=== PATIENT | male | born 1975 | race Hispanic/Latino ===

== ENCOUNTER 2021-03-11 10:35 | Emergency (ER) | payer OTHER, SELFPAY ==
[2021-03-11] VITALS (12 sets, daily range): BP systolic 123–200; BP diastolic 65–100; PULSE 62–103; RESP 14–30; TEMP 36.2; O2SAT 95–99; BMI 37.1
--- NOTE | 2021-03-11 10:42 | DI.RAD.S_ITS ---
PROCEDURE: XR TIBIA FIBULA LT 2V INDICATIONS: trauma TECHNIQUE: 2 views of the tibia and fibula were acquired. COMPARISON: None. FINDINGS: Bones: There are moderately displaced comminuted fractures of the distal tibia and fibula. There is moderate lateral angulation of the distal tibial and fibular fragments. There is a mildly displaced fibular neck fracture. Soft tissues: No suspicious soft tissue calcifications or masses. IMPRESSION: 1. Tibial and fibular fractures as above. Dictated by: Soheila Brito M.D. on 03/11/2021 at 10:58 Approved by: Soheila Brito M.D. on 03/11/2021 at 10:58
--- NOTE | 2021-03-11 10:44 | RT ---
Responded to MOD Trauma. Airway patent. Pt awake and oriented with RA Sat 98%. No intervention necessary at this time.
[2021-03-11] MEDS: HYDROMORPHONE 0.5 MG INJ IV ×2 (11:00→11:22)
--- NOTE | 2021-03-11 11:01 | ED_ITS ---
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 No loss of consciousness. Only complaint is pain in the left lower extremity. Related Data Allergies Allergy/AdvReac Type Severity Reaction Status Date / Time No Known Drug Allergies Allergy Verified 03/11/21 11:12 Review of Systems Review of Systems Narrative: Pertinent positive and negative findings as per HPI Remainder of review of systems is otherwise unremarkable for Constitutional: Fevers, chills, weakness ENT: No sore throat, neck pain, ear pain CV: Chest pain, palpitations, Respiratory: Cough, wheeze, dyspnea GI: Nausea, vomiting, diarrhea, : Dysuria, hematuria, Exam Narrative Exam Narrative: General: Healthy appearing, in no acute distress. Able to give a complete and coherent history. Well-nourished well-developed HEENT: Moist mucous membranes, normal sclera with reactive pupils, Neck: No midline cervical tenderness, supple Respiratory: Lungs are clear to auscultation, no wheezing no rales no rhonchi. Full and symmetrical air movement Cardiac: Regular rate and rhythm no murmurs no bruits Chest: No tenderness to palpation of thoracic spine or rib cage. Abdomen: Soft, nontender, good bowel tones, no flank pain Spine/pelvis: No tenderness to palpation of lumbar spine or pelvic ring. Skin: Warm and dry, no rashes Neurologic: Grossly neurologically intact with no obvious asymmetries or abnormalities. Does have sensation to the affected left toes. Extremities: Open distal tib-fib fracture approximately 3 cm proximal to the ankle joint itself. Bleeding is controlled. Neurovascularly intact distally. Does not appear to have knee, proximal tib-fib or femur injuries. No other extremity injuries are appreciated on initial exam Psych: Cooperative, appropriate insight and affect Initial Vital Signs Initial Vital Signs: Vital Signs Temperature 97.2 F L 03/11/21 10:55 Pulse Rate 86 03/11/21 10:55 Respiratory Rate 21 03/11/21 10:55 Blood Pressure 143/83 H 03/11/21 10:55 Pulse Oximetry 99 03/11/21 10:55 Procedures Orthopedic Splinting/Casting Open left lower extremity fracture: Time of procedure: 12:12 Side: left Lower Extremity Injury Location: lower leg Lower Extremity Immobilizer: posterior splint and stirrup splint Post splinting neuro exam: intact Post splinting vascular exam: intact (Splint left with open spaces to confirm pulses) Procedural Sedation Time of procedure: 12:04 Consent signed: Yes Time out performed: Yes Indication: fracture/dislocation reduction Time of Last PO Intake: 18:00 Preparation: cut off [place]ingle [employer] applied, pulse oximeter, supplemental O2 applied, suction/airway equipment at bedside and IV secured Ketamine: IV Ketamine dose (mg): 300 Intraservice time/total sedation time (min): 16 ED Sedation Level: Moderate (Concious) Patient Tolerated Procedure: Well Course Orders Ordered: ED Orders 03/11/21 10:42 XR tibia fibula LT 2V Stat 03/11/21 10:43 Complete Blood Count AUTO DIFF Stat Comprehensive Metabolic Panel Stat 03/11/21 11:09 COVID19 - ADMIT (COMPUTER HELP DESK REPRESENTATIVE swab/PCR) Stat 03/11/21 12:22 XR tibia fibula LT 2V Stat Discontinued Medications Cefazolin Sodium/Dextrose (Cefazolin 2 Gm/20 Ml Syringe) 2 gm IV NOW ONE Stop: 03/11/21 11:09 Last Admin: 03/11/21 11:18 Dose: 2 gm Documented by: MELL Diphtheria/Tetanus/Acell Pertussis (Tet,Diph,Pertuss(Acell),Vac/Pf 0.5 Ml Syringe) 0.5 ml IM .ONCE ONE Stop: 03/11/21 11:09 Last Admin: 03/11/21 11:17 Dose: 0.5 ml Documented by: MELL Hydromorphone HCl (Hydromorphone 0.5 Mg Inj) 0.5 mg IV Q15MIN PRN PRN Reason: Pain, Last Admin: 03/11/21 11:22 Dose: 0.5 mg Documented by: Admin: 03/11/21 11:00 Dose: 0.5 mg Documented by: MELL Sodium Chloride (Normal Saline 0.9%) 1,000 mls @ 150 mls/hr IV CONT ELIZABETH Last Infusion: 03/11/21 12:24 Dose: 150 mls/hr Documented by: Infusion: 03/11/21 11:54 Dose: 999 mls/hr Documented by: Admin: 03/11/21 11:18 Dose: 150 mls/hr Documented by: MELL Ketamine HCl (Ketamine 500 Mg/5 Ml Inj) 300 mg IV NOW ONE Stop: 03/11/21 11:31 Last Admin: 03/11/21 11:54 Dose: 300 mg Documented by: MELL Ondansetron HCl (Ondansetron 4 Mg/2 Ml Inj) 4 mg IV NOW ONE Stop: 03/11/21 11:01 Last Admin: 03/11/21 11:14 Dose: 4 mg Documented by: MELL Vital Signs Vital signs: Vital Signs - 8 hr 03/11/21 10:55 03/11/21 11:01 03/11/21 11:15 Temperature 97.2 F L Pulse Rate 86 66 88 Respiratory Rate 21 21 23 Blood Pressure 143/83 H 153/86 H Pulse Oximetry 99 96 98 03/11/21 11:23 03/11/21 11:30 03/11/21 11:45 Temperature Pulse Rate 63 62 76 Respiratory Rate 16 20 19 Blood Pressure 135/79 136/78 123/65 Pulse Oximetry 99 99 98 03/11/21 12:00 03/11/21 12:08 03/11/21 12:15 Temperature Pulse Rate 103 H 95 H 82 Respiratory Rate 30 H 19 21 Blood Pressure 200/100 H 183/86 H 166/88 H Pulse Oximetry 99 96 96 03/11/21 12:30 03/11/21 12:38 03/11/21 12:45 Temperature Pulse Rate 84 88 80 Respiratory Rate 18 20 14 Blood Pressure 150/77 H 129/69 Pulse Oximetry 98 96 Medical Decision Making Lab Data Result diagrams: 03/11/21 10:43 03/11/21 10:43 Labs: Lab Results 03/11/21 03/11/21 03/11/21 Range/Units 10:43 10:43 11:09 WBC 7.4 (4.5-11.0) X10^3/uL RBC 4.91 (4.5-5.9) X10^6/uL Hgb 14.2 (13.5-17.5) g/dL Hct 42.0 (41-53) % MCV 85.5 (80-100) fL MCH 28.9 (26-34) PG MCHC 33.8 (30-36) % RDW 12.8 (11.6-14.8) % Plt Count 300 (150-400) X10^3/uL Neut % (Auto) 45.2 L (50-75) % Lymph % (Auto) 44.5 H (25-40) % Luna % (Auto) 7.1 (3-14) % Eos % (Auto) 2.5 (2-4) % Baso % (Auto) 0.7 (0-2) % Neut # (Auto) 3300 (1627-4124) /uL Lymph # (Auto) 3300 (6412-3162) /uL Luna # (Auto) 500 (0-900) /uL Eos # (Auto) 200 (0-450) /uL Baso # (Auto) 0 (0-100) /uL Sodium 141 (137-145) mmol/L Potassium 3.6 (3.4-5.1) mmol/L Chloride 105 (98-107) mmol/L Carbon Dioxide 28 (22-32) mmol/L BUN 16 (9-20) mg/dL Creatinine 0.92 (0.66-1.25) mg/dL Estimated GFR > 60.0 (>60) mL/min BUN/Creatinine Ratio 17.4 (6-22) Glucose 127 H (70-100) mg/dL Calcium 9.1 (8.4-10.2) mg/dL Total Bilirubin 0.4 (0.2-1.3) mg/dL AST 32 (17-59) IU/L ALT 42 (<50) IU/L Alkaline Phosphatase 75 (38-126) U/L Total Protein 7.5 (6.3-8.2) g/dL Albumin 4.6 (3.5-5.0) g/dL Globulin 2.9 (1.7-4.1) g/dL Albumin/Globulin Ratio 1.6 (1.0-2.8) SARS-CoV-2 (PCR) Negative (Negative) Imaging Data Tib-fib: Radiologist's Impression: FINDINGS:? ? Bones:? There are moderately displaced comminuted fractures of the distal tibia and fibula.? There is moderate lateral angulation of the distal tibial and fibular fragments. ?There is a mildly displaced fibular neck fracture. ? Soft tissues:? No suspicious soft tissue calcifications or masses.? ? IMPRESSION:? 1. Tibial and fibular fractures as above.? ? ? Dictated by: Soheila Brito M.D. on 03/11/2021 at 10:58? ?? MDM Narrative Medical decision making narrative: Otherwise healthy 46-year-old gentleman with high energy fracture falling 60 landing on both heels with open fracture distal tib-fib angulated, comminuted with mildly displaced fibular neck fracture as well. Care is reviewed with our orthopedic surgeon who has reviewed the films and reviewed with his partner who focuses on lower extremity injuries. Both recommend transfer to [facility] for higher level of care given the high impact mechanism of injury an anticipated multiple surgical interventions that will be required. Last meal was dinner last night. 1200 [facility] transfer center. Meets criterion for immediate transfer accept for trauma. Dr Miranda, ER doctor, accepting The open comminuted slightly angulated fracture is reduced, rinsed copiously with saline as the skin is brought back out over the bone. Splint is placed w ith spaces left to confirm continued excellent dorsalis pedis and posterior tibialis pulses. Patient tolerated the sedation and procedure well. ALS transport given his sedation, trauma and probable need for pain control is arranged. Critical Care Time Critical Care Time Critical Care Time: Yes Total Critical Care Time: 31 Attestation: Critical care time is separate from other billable procedures. There is a high probability of a significant, sudden or life-threatening deterioration that requires my full and direct attention, intervention and personal management. This critical care time includes consultation with family and other consulting doctors, review of records, and interpretation of data from labs, EKGs and imaging as well as managements of acute trauma and open fractures. Discharge Plan Departure Patient Disposition: [facility] Clinical Impression: Open fracture of distal end of fibula and tibia Qualifiers: Encounter type: initial encounter Open fracture type: open type III Laterality: right Qualified Code(s): S82.831C - Other fracture of upper and lower end of right fibula, initial encounter for open fracture type IIIA, IIIB, or IIIC Closed fracture of proximal end of fibula Qualifiers: Encounter type: initial encounter Fracture morphology: unspecified fracture morphology Laterality: left Qualified Code(s): S82.832A - Other fracture of upper and lower end of left fibula, initial encounter for closed fracture Fall on and from ladder causing accidental injury Qualifiers: Encounter type: initial encounter Qualified Code(s): W11.XXXA - Fall on and from ladder, initial encounter
[2021-03-11 11:08] LABS: Add Manual Diff / Slide Review NO; Basophils Absolute Auto 0 /uL (0-100); Basophils Percent Auto 0.7 % (0-2); Eosinophils Absolute Auto 200 /uL (0-450); Eosinophils Percent Auto 2.5 % (2-4); Hemoglobin 14.2 g/dL (13.5-17.5); Lymphocytes Absolute Auto 3300 /uL (1100-4500); Lymphocytes Percent Auto 44.5 % (25-40); Mean Corpuscular HGB Conc 33.8 % (30-36); Mean Corpuscular Hemoglobin 28.9 PG (26-34); Mean Corpuscular Volume 85.5 fL (80-100); Monocytes Absolute Auto 500 /uL (0-900); Monocytes Percent Auto 7.1 % (3-14); Neutrophils Absolute Auto 3300 /uL (1500-7000); Neutrophils Percent Auto 45.2 % (50-75); Platelet Count 300 X10^3/uL (150-400); Red Blood Cell Count 4.91 X10^6/uL (4.5-5.9); Red Cell Distribution Width 12.8 % (11.6-14.8); White Blood Cell Count 7.4 X10^3/uL (4.5-11.0)
--- NOTE | 2021-03-11 11:13 | PC.NURSE ---
See trauma flowsheet for trauma documentation
[2021-03-11] MEDS: ONDANSETRON 4 MG/2 ML INJ IV (11:14)
[2021-03-11 11:16] LABS: Alanine Aminotransferase 42 IU/L (<50); Albumin 4.6 g/dL (3.5-5.0); Albumin Globulin Ratio 1.6 (1.0-2.8); Alkaline Phosphatase 75 U/L (38-126); Aspartate Aminotransferase 32 IU/L (17-59); BUN Creatinine Ratio 17.4 (6-22); Bilirubin Total 0.4 mg/dL (0.2-1.3); Blood Urea Nitrogen 16 mg/dL (9-20); Calcium 9.1 mg/dL (8.4-10.2); Carbon Dioxide 28 mmol/L (22-32); Chloride 105 mmol/L (98-107); Estimated Glomerular Filt Rate > 60.0 mL/min (>60); Globulin 2.9 g/dL (1.7-4.1); Glucose 127 mg/dL (70-100); HEMOLYSIS < 15 (0-50); Potassium 3.6 mmol/L (3.4-5.1); Sodium 141 mmol/L (137-145); Total Protein 7.5 g/dL (6.3-8.2)
[2021-03-11] MEDS: TET,DIPH,PERTUSS(ACELL),VAC/PF 0.5 ML SYRINGE IM (11:17)
[2021-03-11] MEDS: SODIUM CHLORIDE 0.9% 1,000 ML 150 ML IV (11:18)
[2021-03-11] MEDS: CEFAZOLIN 2 GM/20 ML SYRINGE IV (11:18)
[2021-03-11] MEDS: KETAMINE 500 MG/5 ML INJ 300 MG IV (11:54)
[2021-03-11 11:59] LABS: COVID19 - ADMIT (NP swab/PCR) Negative (Negative)
--- NOTE | 2021-03-11 12:22 | DI.RAD.S_ITS ---
PROCEDURE: XR TIBIA FIBULA LT 2V INDICATIONS: post reduction TECHNIQUE: 2 views of the tibia and fibula were acquired. COMPARISON: [facility], CR, XR TIBIA FIBULA LT 2V, 03/11/2021, 10:38. FINDINGS: Bones: Redemonstrated comminuted fracture of the distal tibial diaphysis and transverse fracture of the distal fibula with slightly improved anatomic alignment, post reduction. Mildly displaced oblique fracture of the proximal fibula. Soft tissues: Edema about the fracture sites. IMPRESSION: Slightly improved anatomic alignment, post reduction. Dictated by: Samir Murillo M.D. on 03/11/2021 at 12:51 Approved by: Samir Murillo M.D. on 03/11/2021 at 12:53
== END 2021-03-11 12:58 | disposition short-term general hospital (02) ==
PROVIDERS: Emergency Provider Emergency Medicine
DX: S82.452C Displaced comminuted fracture of shaft of left fibula, initial encounter for open fracture type IIIA, IIIB, or IIIC (principal); S82.252C Displaced comminuted fracture of shaft of left tibia, initial encounter for open fracture type IIIA, IIIB, or IIIC; S82.492A Other fracture of shaft of left fibula, initial encounter for closed fracture; W11.XXXA Fall on and from ladder, initial encounter; Y99.0 Civilian activity done for income or pay; Z23 Encounter for immunization
CPT/HCPCS: 27788; 27825; 36415; 73590; 80053; 85025; 87635; 90471; 96361; 96374; 96375; 99152; 99285; 99291; 99292; C9803; 90715; J0690; J1170; J2405